=== PATIENT | male | born 1985 | race Caucasian/White ===

== ENCOUNTER → 2017-08-01 | Outpatient (CLI) | payer BC ==
[2017-08-01 16:50] LABS: SEMEN VOLUME 3.9 ML (1.5-5.0)
== END ==
LOC: LAB 16:12
PROVIDERS: ATTEND Obstetrics & Gynecology
DX: Z31.9 Encounter for procreative management, unspecified (principal)
CPT/HCPCS: 89320

== ENCOUNTER 2017-12-27 12:45 | Outpatient (RCR) | payer BC ==
[2017-12-27 13:14] LABS: SEMEN VOLUME 4.5 ML (1.5-5.0)
== END 2018-03-27 | disposition home or self-care (01) ==
LOC: LAB 12:45
PROVIDERS: ATTEND Obstetrics & Gynecology
DX: N46.11 Organic oligospermia (principal)
CPT/HCPCS: 89320